=== PATIENT | female | born 1990 | race Caucasian/White ===

== ENCOUNTER 2024-03-22 23:36 | Emergency (ER) | payer MEDICAID ==
[~2024-03-22] VITALS: Ht 170.2 cm; Wt 61.0 kg
[2024-03-22 23:46] VITALS: O2SAT 100
[2024-03-23 00:41] LABS: CHLORIDE 106 mEq/L (98-107); POTASSIUM 3.8 mEq/L (3.5-5.1); SODIUM 137 mEq/L (136-145)
[2024-03-23 00:42] LABS: CALCIUM 9.4 mg/dL (8.7-10.4); CARBON DIOXIDE 23 mEq/L (21-32)
[2024-03-23 00:47] LABS: CREATININE 0.8 mg/dL (0.6-1.0); GLUCOSE 107 mg/dL (70-105); UREA NITROGEN BLOOD 13 mg/dL (9-23)
[2024-03-23 00:48] LABS: BASOPHILS % 0.4 % (0.0-2.0); EOSINOPHILS % 1.2 % (0.0-5.0); HEMATOCRIT. 40.3 % (36.0-48.0); HEMOGLOBIN. 13.6 g/dL (12.0-16.0); LYMPHOCYTES % 25.7 % (20.0-50.0); MEAN CORPUSCULAR HEMOGLOBIN 28.6 pg (28.0-32.0); MEAN CORPUSCULAR HGB CONC 33.8 g/dL (31.0-37.0); MEAN CORPUSCULAR VOLUME 84.5 fL (81.0-99.0); MEAN PLATELET VOLUME 8.1 fl (7.4-10.4); MONOCYTES % 4.5 % (2.0-8.0); NEUTROPHILS % 68.2 % (40.0-76.0); PLATELET 289 x1000/uL (130-400); RED BLOOD CELL COUNT 4.77 mill/uL (4.2-5.4); RED CELL DISTRIBUTION WIDTH 12.9 % (11.6-14.6)
[2024-03-23 00:56] LABS: TROPONIN I HIGH SENSITIVITY < 4 ng/L (3.0-34)
[2024-03-23 00:59] VITALS: BP 106/58; PULSE 83; RESP 18; TEMP 36.9; O2SAT 98
[2024-03-23] MEDS: ACETAMINOPHEN 500MG TABLET PO ONE (00:59)
[2024-03-23] MEDS: LORAZEPAM 1MG TABLET PO ONE (00:59)
[2024-03-23 03:31] LABS: TROPONIN I HIGH SENSITIVITY < 4 ng/L (3.0-34)
[2024-03-23] MEDS ORDERED: IOHEXOL-350 100 ML BOTTLE ONE (06:32)
== END 2024-03-23 03:43 | disposition home or self-care (01) ==
LOC: ER 23:36
DX: R07.89 Other chest pain (principal); Z41.1 Encounter for cosmetic surgery
CPT/HCPCS: 99285; 80048; 81025; 85025; 85379; 84484; 36415; 71045; 71275; 93005; Q9967; Z7610